=== PATIENT | female | born 1975 | race Caucasian/White ===

== ENCOUNTER 2018-09-24 16:24 | Emergency (ER) | payer OTHER ==
[~2018-09-24] VITALS: Ht 170.2 cm; Wt 86.4 kg
[2018-09-24 16:30] VITALS: BP 134/94; PULSE 65; RESP 14; Ht 170.2 cm; Wt 86.4 kg
[2018-09-24] MEDS ORDERED: ONDANSETRON 4 MG INJ IV STA (16:31)
[2018-09-24] MEDS ORDERED: KETOROLAC 15 MG INJ IV STA (16:31)
[2018-09-24] MEDS ORDERED: SOD CHLORIDE 0.9% 1,000 ML IV STA (16:31)
[2018-09-24] MEDS: ALPRAZOLAM 1 MG TAB PO ONE ×2 (16:51→16:53)
--- NOTE | 2018-09-24 16:58 | ERD ---
ER Documentation Chief Complaint Chief Complaint HPI 43-year-old woman brought in by EMS for "chest pain". Patient has a history of mitral valve prolapse and states she has had similar episodes in the past but not as severe. She points to her epigastrium when describing location of pain, states that sharp, nonexertional but radiating to below the left breast. She also describes paresthesias around her mouth. She had some nausea and complaints of shortness of breath with palpitations. She denies fevers or chills, no cough, no loss of consciousness, no headache or blurry vision. Patient was transported here by EMS without further complications. ROS All systems reviewed and are negative except as per history of present illness. Medications Home Meds Active Scripts Mag Hydrox/Al Hydrox/Simeth (Maalox Advanced Suspension) 355 Ml Oral.susp, 2 TSP PO TID PRN for PAIN, #20 OZ Prov:CHRISTINE MONDRAGON MD 09/24/18 Esomeprazole Mag Trihydrate (Nexium) 40 Mg Capsule.dr, 40 MG PO DAILY, #14 CAP Prov:CHRISTINE MONDRAGON MD 09/24/18 Reported Medications Ibuprofen* (Ibuprofen*) 600 Mg Tablet, 600 MG PO NEEDED, TAB 09/24/18 Aspirin* (Aspirin* EC) 81 Mg Tablet., 81 MG PO NEEDED, TAB 09/24/18 Allergies Allergies: Coded Allergies: cortisone (Unverified Allergy, Unknown, 09/24/18) injection PMhx/Soc Gastritis, mitral valve prolapse FmHx Family History: No diabetes Physical Exam Vitals Vital Signs Date Temp Pulse Resp B/P (MAP) Pulse Ox O2 O2 Flow FiO2 Time Delivery Rate 09/24/18 98.2 65 14 134/94 100 16:30 (107) Per nurse's records Physical Exam GENERAL: Well-developed, well-nourished, anxious, afebrile HEENT: Moist mucous membranes, pink conjunctiva, no cervical spine tenderness or step-off deformities, NEURO: Alert and oriented 3, cranial nerves II through XII intact bilaterally, pupils equal round reactive to light, no focal deficits or facial asymmetry, sensation intact distally Strength 5/5 in upper and lower extremities bilaterally CARDIAC: Sinus bradycardia, no murmurs rubs or gallops LUNGS: Clear bilaterally no wheezing crackles or stridor ABDOMEN: Soft nontender, no guarding, no rigidity, no rebound, no psoas sign no obturator sign. SKIN: Warm and dry to touch, no abrasions, contusions, or hematomas, no lacerat ions, no ecchymosis, no target lesions, and without ulcers EXTREMITIES: No clubbing cyanosis or edema, calves are bilaterally symmetrical, no Homans sign, no popliteal cord sign. Distal pulses equal and bilateral PSYCH: Anxious Result Diagram: 09/24/18 1705 09/24/18 1705 Results 24 hrs Laboratory Tests Test 09/24/18 17:05 White Blood Count 9.2 10^3/ul Red Blood Count 3.79 10^6/ul Hemoglobin 11.2 g/dl Hematocrit 35.7 % Mean Corpuscular Volume 94.2 fl Mean Corpuscular Hemoglobin 29.6 pg Mean Corpuscular Hemoglobin Concent 31.4 g/dl Red Cell Distribution Width 13.0 % Platelet Count 288 10^3/UL Mean Platelet Volume 10.0 fl Immature Granulocytes % 0.500 % Neutrophils % 52.9 % Lymphocytes % 37.0 % Monocytes % 8.6 % Eosinophils % 0.5 % Basophils % 0.5 % Nucleated Red Blood Cells % 0.0 /100WBC Immature Granulocytes # 0.050 10^3/ul Neutrophils # 4.9 10^3/ul Lymphocytes # 3.4 10^3/ul Monocytes # 0.8 10^3/ul Eosinophils # 0.1 10^3/ul Basophils # 0.1 10^3/ul Nucleated Red Blood Cells # 0.0 10^3/ul Sodium Level 141 mmol/L Potassium Level 3.9 mmol/L Chloride Level 106 mmol/L Carbon Dioxide Level 27 mmol/L Anion Gap 8 Blood Urea Nitrogen 17 mg/dl Creatinine 0.79 mg/dl Est Glomerular Filtrat Rate mL/min > 60 mL/min Glucose Level 103 mg/dl Calcium Level 9.4 mg/dl Total Bilirubin 0.3 mg/dl Direct Bilirubin 0.00 mg/dl Indirect Bilirubin 0.3 mg/dl Aspartate Amino Transf (AST/SGOT) 25 IU/L Alanine Aminotransferase (ALT/SGPT) 23 IU/L Alkaline Phosphatase 62 IU/L Troponin I < 0.012 ng/ml Total Protein 6.9 g/dl Albumin 4.1 g/dl Globulin 2.80 g/dl Albumin/Globulin Ratio 1.46 Lipase 175 U/L Current Medications Medications Dose Sig/Prieto Start Time Status Last (Trade) Ordered Route PRN Stop Time Admin Dose Reason Admin Sodium 1,000 ml @ Q1H STAT 09/24/18 DC 09/24/18 Chloride 1,000 mls/hr IV 16:31 16:52 09/24/18 17:30 Ondansetron 4 mg ONCE STAT 09/24/18 DC 09/24/18 HCl (Zofran IV 16:31 16:51 Inj) 09/24/18 16:33 Ketorolac 15 mg ONCE STAT 09/24/18 DC 09/24/18 Tromethamine IV 16:31 16:51 (Toradol) 09/24/18 16:33 Alprazolam 1 mg ONCE ONCE 09/24/18 DC (Xanax) PO 17:00 09/24/18 17:01 Procedures/MDM IV line was established patient was placed on quality assurance monitor final rhythm strip revealed a sinus rhythm at about 60 bpm with upright P and T waves. Patient was afebrile EKG performed, read by me revealed a sinus bradycardia 57 bpm, normal axis, narrow QRS complex, no concerning ST elevations or depressions noted One AP view of the chest performed, read by me reveals no acute infiltrates, normal mediastinum, sharp costophrenic and cardiac borders, no air under the diaphragm. Otherwise unremarkable chest x-ray. I administered 1 L normal saline IV, Toradol 15 mg IV, Zofran 4 mg IV, alprazolam 1 mg p.o. x1 CBC and electrolytes were normal, liver function tests normal, troponin negative. Patient feels much better vital signs remained normal and symptoms have improved. Differential diagnoses considered, included but not limited to acute coronary syndrome, pulmonary embolism, aortic dissection, abdominal aortic aneurysm, sepsis, stroke, meningitis, encephalitis, pneumonia, appendicitis, cholecyst itis, bowel obstruction, pyelonephritis, nephrolithiasis, cystitis, as well as metabolic, hematologic, and electrolyte abnormalities. As well as abscess, cellulitis, fractures, and dislocations. Patient feels much better at this time, and vital signs are normal, symptoms have improved. I did give strict instructions to return to the ED if symptoms continue or worsen, patient will otherwise follow-up with primary care physician. Patient understood instructions and agreed to plan. Disclaimer: Inadvertent spelling and grammatical errors are likely due to EHR/dictation software use and do not reflect on the overall quality of patient care. Also, please note that the electronic time recorded on this note does not necessarily reflect the actual time of the patient encounter. Departure Diagnosis: Primary Impression: Epigastric pain Additional Impression: Paresthesias Condition: Good CHRISTINE MONDRAGON MD Sep 24, 2018 16:58
[2018-09-24] MEDS ORDERED: ASPI-817 PO (17:29)
[2018-09-24] MEDS ORDERED: IBUP-1542 PO (17:30)
[2018-09-24] MEDS ORDERED: MAG355OR14 PO (18:07)
[2018-09-24] MEDS ORDERED: ESOM40CA PO (18:07)
== END 2018-09-24 18:27 | disposition home or self-care (01) ==
LOC: E/R 16:24
DX: R10.13 Epigastric pain (principal); R20.2 Paresthesia of skin; Z79.82 Long term (current) use of aspirin
CPT/HCPCS: 36415; 71045; 80053; 83690; 84484; 85025; 96374; 96375; 99285; J1885; J2405; J7030; 93005